=== PATIENT | male | born 1935 | race Caucasian/White ===

== ENCOUNTER 2023-03-10 12:28 | Emergency (ER) | payer OTHER ==
[2023-03-10 14:45] LABS: Hematocrit 30.2 % (39.6-49.0); Lymphocytes % 12.6 % (15.3-44.8); MPV 8.2 fL (7.6-11.3); Platelets 173 thou/uL (152-406); RBC Red Blood Cell Count 3.59 M/uL (4.33-5.43)
[2023-03-10 14:51] LABS: Protime INR 1.77
[2023-03-10 15:02] LABS: Albumin 2.2 g/dL (3.4-5.0); Bilirubin Direct 0.2 mg/dL (0-0.2); Bilirubin Indirect, Calculated 0.3 mg/dL (0.2-0.8); Bilirubin Total 0.5 mg/dL (0.2-1.0); Magnesium 2.1 mg/dL (1.6-2.4); Potassium 3.8 mEq/L (3.5-5.1); Protein, Total 6.4 g/dL (6.4-8.2); Troponin High Sensitivity 11.2 pg/mL (<58.9)
--- NOTE | 2023-03-10 15:05 | RAD REPORT ---
EXAM DESCRIPTION: Emilee Single View03/10/2023 2:40 pm CLINICAL HISTORY: Cough COMPARISON: none FINDINGS: Mild bilateral pulmonary opacities. Probable small pleural effusions Heart is mildly enlarged. Postsurgical changes involve the chest. Pacemaker leads in place IMPRESSION: These findings probably indicate mild CHF
[2023-03-10 15:30] LABS: SARS-CoV-2 Antigen Rapid Res Negative (Negative)
[2023-03-10] MEDS ORDERED: FUROSEMIDE 20 MG/ 2ML VIAL ONE (15:53)
--- NOTE | 2023-03-10 16:14 | EDPHYS ---
Physician Documentation [facility] Name: Viri Christian Age: 87 yrs Sex: Male : 1935 Arrival Date: 03/10/2023 Time: 12:28 Bed 18 Private MD: ED Physician Nico Lutz HPI: 03/10 13:15 This 87 yrs old Male presents to ER via Wheelchair with complaints of Breathing cp3 Difficulty. 13:15 The patient has shortness of breath at rest. Onset: The symptoms/episode began/occurred cp3 1 week(s) ago. Duration: The symptoms are continuous. The patient's shortness of breath is aggravated by coughing. Associated signs and symptoms: Pertinent positives: non-productive cough. Severity of symptoms: At their worst the symptoms were moderate in the emergency department the symptoms are unchanged. The patient has experienced a previous episode, but today's symptoms are not as bad as this previous episode. Historical: - Allergies: 12:38 No Known Allergies; cm10 - Home Meds: 12:38 Eliquis 5 mg oral tablet 2 times per day [Active]; levothyroxine 75 mcg tablet once cm10 [Active]; atorvastatin 40 mg oral tablet once [Active]; carvedilol 12.5 mg oral tablet 2 times per day [Active]; lisinopril 2.5 mg Oral tablet once [Active]; - PMHx: 12:38 Cancer- Throat; Hypertensive disorder; Hypothyroidism; Hypercholesterolemia; cm10 - Immunization history:: Adult Immunizations unknown. - Social history:: Smoking status: Patient denies any tobacco usage or history of. ROS: 13:15 Constitutional: Negative for fever, chills, and weight loss, Eyes: Negative for injury, cp3 pain, redness, and discharge, ENT: Negative for injury, pain, and discharge, Neck: Negative for injury, pain, and swelling, Cardiovascular: Negative for chest pain, palpitations, and edema, Abdomen/GI: Negative for abdominal pain, nausea, vomiting, diarrhea, and constipation, Back: Negative for injury and pain, : Negative for injury, bleeding, discharge, and swelling, MS/Extremity: Negative for injury and deformity, Skin: Negative for injury, rash, and discoloration, Neuro: Negative for headache, weakness, numbness, tingling, and seizure, Psych: Negative for depression, anxiety, suicide ideation, homicidal ideation, and hallucinations, Allergy/Immunology: Negative for hives, rash, and allergies, Endocrine: Negative for neck swelling, polydipsia, polyuria, polyphagia, and marked weight changes, Hematologic/Lymphatic: Negative for swollen nodes, abnormal bleeding, and unusual bruising, 13:15 Respiratory: Positive for cough, shortness of breath, at rest. Exam: 13:15 Constitutional: This is a well developed, well nourished patient who is awake, alert, cp3 and in no acute distress. Head/Face: Normocephalic, atraumatic. Eyes: Pupils equal round and reactive to light, extra-ocular motions intact. Lids and lashes normal. Conjunctiva and sclera are non-icteric and not injected. Cornea within normal limits. Periorbital areas with no swelling, redness, or edema. ENT: Nares patent. No nasal discharge, no septal abnormalities noted. Tympanic membranes are normal and external auditory canals are clear. Oropharynx with no redness, swelling, or masses, exudates, or evidence of obstruction, uvula midline. Mucous membranes moist. Neck: Trachea midline, no thyromegaly or masses palpated, and no cervical lymphadenopathy. Supple, full range of motion without nuchal rigidity, or vertebral point tenderness. No Meningismus. Chest/axilla: Normal chest wall appearance and motion. Nontender with no deformity. No lesions are appreciated. Cardiovascular: Regular rate and rhythm with a normal S1 and S2. No gallops, murmurs, or rubs. Normal PMI, no JVD. No pulse deficits. Abdomen/GI: Soft, non-tender, with normal bowel sounds. No distension or tympany. No guarding or rebound. No evidence of tenderness throughout. Skin: Warm, dry with normal turgor. Normal color with no rashes, no lesions, and no evidence of cellulitis. MS/ Extremity: Pulses equal, no cyanosis. Neurovascular intact. Full, normal range of motion. Neuro: Awake and alert, GCS 15, oriented to person, place, time, and situation. Cranial nerves II-XII grossly intact. Motor strength 5/5 in all extremities. Sensory grossly intact. Cerebellar exam normal. Normal gait. Psych: Awake, alert, with orientation to person, place and time. Behavior, mood, and affect are within normal limits. 13:15 Respiratory: Breath sounds: diminished bilaterally, Vital Signs: 12:37 BP 105 / 60; Pulse 72; Resp 16 S; Temp 97.1(TE); Pulse Ox 97% on R/A; Weight 65.77 kg; cm10 Height 5 ft. 7 in. ; Pain 0/10; 13:20 BP 95 / 62; Pulse 70; Resp 16; Pulse Ox 96% on R/A; eh3 14:00 BP 111 / 72; Pulse 70; Resp 14; Pulse Ox 97% on R/A; eh3 15:00 BP 104 / 76; Pulse 85; Resp 16; Pulse Ox 98% on R/A; eh3 16:00 BP 103 / 74; Pulse 70; Resp 20; Pulse Ox 97% on R/A; eh3 12:37 Body Mass Index 22.71 (65.77 kg, 170.18 cm) cm10 12:37 Pain Scale: Adult cm10 Procedures: 16:09 ekg interpreted by me, rate 70, no evidence of acute mi. cp3 MDM: 12:36 Patient medically screened. cp3 16:09 Differential diagnosis: Bronchitis CHF exacerbation, Chronic Obstructive Pulmonary cp3 Disease Myocardial Infarction pneumonia, Pneumothorax pulmonary edema, reactive airway disease. Antibiotic administration: The patient is discharged and will get outpatient antibiotics. Data reviewed: vital signs, nurses notes, radiologic studies, plain films, cxr interpreted by me- pulmonary edema. Consideration of Admission/Observation Escalation of care including admission/observation considered. patient declined observation. I considered the following discharge prescriptions or medication management in the emergency department Medications were administered in the Emergency Department. See MAR. Independent interpretation of the following test(s) in the Emergency Department clinical research monitor: rate is 70 beats/min, Rhythm is normal sinus rhythm. 16:09 Response to treatment: the patient's symptoms have markedly improved after treatment. 3 03/10 14:13 Order name: BMP; Complete Time: 15:19 3 03/10 15:42 Interpretation: Within normal limits: NA 142; K 3.8; CL 109; CO2 31; ANION GAP 5.8; cp3 GLUC 112; BUN 17; CRE 0.96; GFR 77; CA 8.6. 03/10 14:13 Order name: Blood Culture Adult (2) 3 03/10 14:13 Order name: CBC with Diff; Complete Time: 14:54 3 03/10 14:54 Interpretation: WBC 8.00; RBC 3.59; HGB 10.0; HCT 30.2; MCV 84.0; MCH 27.7; MCHC 33.0; cp3 PLT 173; RDW 16.1; MPV 8.2; GILBERTO% 77.6; LYM% 12.6; MN% 7.9; EOSINOPHIL % 1.4; BASO% 0.5; NEUT A 6.2; LYMA 1.0; MNA 0.6; EOSA 0.1; BASOA 0.0. 03/10 14:13 Order name: CPK; Complete Time: 15:19 cp3 03/10 14:13 Order name: Hepatic Function; Complete Time: 15:19 cp3 03/10 14:13 Order name: Lipase; Complete Time: 15:19 cp3 03/10 15:42 Interpretation: LIP 41. cp3 03/10 14:13 Order name: Magnesium; Complete Time: 15:19 cp3 03/10 14:13 Order name: NT PRO-BNP; Complete Time: 15:19 cp3 03/10 14:13 Order name: PT-INR; Complete Time: 14:54 cp3 03/10 14:13 Order name: Ptt, Activated; Complete Time: 14:54 cp3 03/10 14:13 Order name: Troponin HS; Complete Time: 15:19 cp3 03/10 15:42 Interpretation: Troponin HS 11.2. cp3 03/10 15:09 Order name: Flu; Complete Time: 16:39 eb 03/10 15:09 Order name: RSV; Complete Time: 16:39 eb 03/10 15:12 Order name: SARS-COV-2 Antigen Rapid; Complete Time: 15:42 EDMS 03/10 15:42 Interpretation: SARS RESULT Negative. cp3 03/10 14:13 Order name: XRAY CXR (1 view); Complete Time: 15:19 cp3 03/10 15:43 Interpretation: Per Radiologist's finding(s): [facility] [address] [address] RADIOLOGY SERVICES REPORT Name: VIRI CHRISTIAN MERRILL Acct Number: [id number] :1935 Age:87 Sex:M Ord Phys: Nico Lutz MD Unit Number: [id number] [facility] Dr: NONE Status: REG ER ER Exam Date: 03/10/23 EXAM DESCRIPTION: Emilee Single View03/10/2023 2:40 pm CLINICAL HISTORY: Cough COMPARISON: none FINDINGS: Mild bilateral pulmonary opacities. Probable small pleural effusions Heart is mildly enlarged. Postsurgical changes involve the chest. Pacemaker leads in place IMPRESSION: These findings probably indicate mild CHF Signed By: Herbert Panda MD Signed AT: 03/10/23 1505 , Pulmonary edema on reviewed images, Pulmonary edema on reviewed images, Pulmonary edema on reviewed images, Pulmonary edema on reviewed images, Pulmonary edema on reviewed images. 03/10 14:13 Order name: EKG; Complete Time: 14:14 cp3 03/10 14:13 Order name: Cardiac monitoring; Complete Time: 14:38 cp3 03/10 14:13 Order name: EKG - Nurse/Tech; Complete Time: 14:59 cp3 03/10 14:13 Order name: IV Saline Lock; Complete Time: 14:38 cp3 03/10 14:13 Order name: Labs collected and sent; Complete Time: 14:38 cp3 03/10 14:13 Order name: O2 Per Protocol; Complete Time: 14:14 cp3 03/10 14:13 Order name: O2 Sat Monitoring; Complete Time: 14:14 cp3 Administered Medications: 15:50 Drug: Furosemide IVP 20 mg IVP once; give over 2 minutes Route: IVP; Site: right upper eh3 arm; 16:22 Follow up: Response: No adverse reaction eh3 Disposition Summary: 03/10/23 16:13 Discharge Ordered Notes: Location: Home cp3 Condition: Stable cp3 Problem: new cp3 Diagnosis - cough cp3 - shortness of breath cp3 - pulmonary edema cp3 - acute on chronic congestive heart failure- unspecified if diasolic or systolic cp3 dysfunction - bronchitis cp3 Followup: cp3 - With: Akira Sommer MD - When: - Reason: Recheck today's complaints Discharge Instructions: - Discharge Summary Sheet cp3 - Acute Bronchitis, Adult cp3 - Pulmonary Edema, [id number] cp3 Forms: - Medication Reconciliation Form cp3 - Thank You Letter cp3 - Antibiotic Education cp3 - Prescription Opioid Use cp3 - Patient Portal Instructions cp3 - Leadership Thank You Letter cp3 Prescriptions: - Cephalexin 250 mg Oral capsule - take 1 capsule ORAL route every 8 hours for 10 days; 21 capsule; Refills: 0, cp3 Product Selection Permitted - Lasix 20 mg Oral Tablet - take 1 tablet ORAL route once daily; 20 tablet; Refills: 0, Product Selection cp3 Permitted - Tessalon Perles 100 mg Oral Capsule - take 1 capsule ORAL route every 8 hours As needed; 15 capsule; Refills: 0, cp3 Product Selection Permitted Signatures: Dispatcher [employer] EDNico Bahena MD MD cp3 Lulu Fraser RN RN eh3 Molly Vee RN RN cm10 Corrections: (The following items were deleted from the chart) 15:12 14:14 COVID-19/FLU A+B/RSV+MOL.LAB.BRZ ordered. EDMS EDMS 15:42 15:42 NA 142; K 3.8; CL 109; CO2 31; ANION GAP 5.8; GLUC 112; BUN 17; CRE 0.96; GFR 77; cp3 CA 8.6. cp3
--- NOTE | 2023-03-10 16:14 | ER ---
Nurse's Notes [facility] Name: Michael Christian Age: 87 yrs Sex: Male : 1935 Arrival Date: 03/10/2023 Time: 12:28 Bed 18 Private MD: Diagnosis: cough;shortness of breath;pulmonary edema;acute on chronic congestive heart failure- unspecified if diasolic or systolic dysfunction;bronchitis Presentation: 03/10 12:37 Chief complaint: Patient states: cough and shortness of breath X3 weeks. PT states that cm10 he feels like he has fluid in his lungs. Coronavirus screen: Vaccine status: Patient reports receiving the 2nd dose of the covid vaccine. Client denies travel out of the [place] in the last 14 days. Ebola Screen: Patient denies travel to an Ebola-affected area in the 21 days before illness onset. No symptoms or risks identified at this time. Initial Sepsis Screen: Does the patient meet any 2 criteria? No. Patient's initial sepsis screen is negative. Does the patient have a suspected source of infection? No. Patient's initial sepsis screen is negative. Risk Assessment: Do you want to hurt yourself or someone else? Patient reports no desire to harm self or others. Onset of symptoms was March 10, 2023. 12:37 Method Of Arrival: Wheelchair cm10 12:37 Acuity: NOÉ 3 cm10 Triage Assessment: 13:20 General: Appears in no apparent distress. uncomfortable, Behavior is calm, cooperative, eh3 appropriate for age. Respiratory: Reports labored breathing Onset: The symptoms/episode began/occurred 3-4 days ago. Respiratory: the patient has mild shortness of breath. Historical: - Allergies: 12:38 No Known Allergies; cm10 - Home Meds: 12:38 Eliquis 5 mg oral tablet 2 times per day [Active]; levothyroxine 75 mcg tablet once cm10 [Active]; atorvastatin 40 mg oral tablet once [Active]; carvedilol 12.5 mg oral tablet 2 times per day [Active]; lisinopril 2.5 mg Oral tablet once [Active]; - PMHx: 12:38 Cancer- Throat; Hypertensive disorder; Hypothyroidism; Hypercholesterolemia; cm10 - Immunization history:: Adult Immunizations unknown. - Social history:: Smoking status: Patient denies any tobacco usage or history of. Screenin:20 [facility] ED Fall Risk Assessment (Adult) Score/Fall Risk Level 0 - 2 = Low Risk. Abuse eh3 screen: Denies threats or abuse. Denies injuries from another. Nutritional screening: No deficits noted. Tuberculosis screening: No symptoms or risk factors identified. Assessment: 13:20 General: Appears in no apparent distress. uncomfortable, Behavior is calm, cooperative, eh3 appropriate for age. Pain: Denies pain. Neuro: Level of Consciousness is awake, alert, obeys commands, Oriented to person, place, time, situation. Cardiovascular: Capillary refill < 3 seconds Patient's skin is warm and dry. Respiratory: Airway is patent Respiratory effort is even, unlabored, Respiratory pattern is regular, symmetrical, 13:30 Cardiovascular: Rhythm is ventricular pacer. eh3 14:00 Reassessment: Patient appears in no apparent distress at this time. Patient and/or 3 family updated on plan of care and expected duration. Pain level reassessed. Patient is alert, oriented x 3, equal unlabored respirations, skin warm/dry/pink. 15:00 Reassessment: Patient appears in no apparent distress at this time. Patient and/or 3 family updated on plan of care and expected duration. Pain level reassessed. Patient is alert, oriented x 3, equal unlabored respirations, skin warm/dry/pink. 16:00 Reassessment: Patient appears in no apparent distress at this time. Patient and/or 3 family updated on plan of care and expected duration. Pain level reassessed. Patient is alert, oriented x 3, equal unlabored respirations, skin warm/dry/pink. Vital Signs: 12:37 BP 105 / 60; Pulse 72; Resp 16 S; Temp 97.1(TE); Pulse Ox 97% on R/A; Weight 65.77 kg; cm10 Height 5 ft. 7 in. ; Pain 0/10; 13:20 BP 95 / 62; Pulse 70; Resp 16; Pulse Ox 96% on R/A; eh3 14:00 BP 111 / 72; Pulse 70; Resp 14; Pulse Ox 97% on R/A; eh3 15:00 BP 104 / 76; Pulse 85; Resp 16; Pulse Ox 98% on R/A; eh3 16:00 BP 103 / 74; Pulse 70; Resp 20; Pulse Ox 97% on R/A; eh3 12:37 Body Mass Index 22.71 (65.77 kg, 170.18 cm) cm10 12:37 Pain Scale: Adult cm10 ED Course: 12:33 Patient arrived in ED. mr 12:36 Nico Lutz MD is Attending Physician. cp3 12:38 Triage completed. cm10 12:41 Arm band placed on Patient placed in an exam room, on a stretcher. cm10 13:20 Provided Education on: use of call cooney. Client placed on continuous cardiac and pulse eh3 oximetry monitoring. NIBP monitoring applied. 13:20 Patient has correct armband on for positive identification. Bed in low position. Call eh3 light in reach. Side rails up X2. 13:53 Lulu Fraser, RN is Primary Nurse. eh3 14:41 XRAY CXR (1 view) In Process Unspecified. EDMS 15:21 SARS-COV-2 Antigen Rapid Sent. eh3 16:12 Akira Sommer MD is Referral Physician. cp3 16:20 No provider procedures requiring assistance completed. IV discontinued, intact, eh3 bleeding controlled, No redness/swelling at site. Pressure dressing applied. Administered Medications: 15:50 Drug: Furosemide IVP 20 mg IVP once; give over 2 minutes Route: IVP; Site: right upper eh3 arm; 16:22 Follow up: Response: No adverse reaction eh3 Medication: 16:21 VIS not applicable for this client. eh3 Outcome: 16:13 Discharge ordered by MD. cp3 16:52 Discharged to home ambulatory, with significant other, eh3 16:52 Condition: stable 16:52 Discharge instructions given to patient, Instructed on discharge instructions, follow up and referral plans. medication usage, Demonstrated understanding of instructions, follow-up care, medications, Prescriptions given X 3, 16:52 Patient left the ED. eh3 Signatures: Dispatcher [employer] EDMS Nico Lutz MD MD cp3 Ila Yang, Reg Reg mr Lulu Fraser, RN RN 3 Molly Vee, SLAVA RN cm10 Corrections: (The following items were deleted from the chart) 15:12 14:59 COVID-19/FLU A+B/RSV+MOL.LAB.BRZ drawn and sent. eh3 EDMS 16:22 16:21 Patient has correct armband on for positive identification. Bed in low position. eh3 Call light in reach. Side rails up X2. eh3
[2023-03-10 16:57] VITALS: TEMP 97.1
[2023-03-10 17:05] VITALS: BP 103/74; O2SAT 97
== END 2023-03-10 16:52 | disposition home or self-care (01) ==
LOC: ER 12:28
DX: J40 Bronchitis, not specified as acute or chronic (principal); I50.43 Acute on chronic combined systolic (congestive) and diastolic (congestive) heart failure; R06.02 Shortness of breath; I10 Essential (primary) hypertension; E03.9 Hypothyroidism, unspecified; Z79.01 Long term (current) use of anticoagulants; Z11.52 Encounter for screening for COVID-19
CPT/HCPCS: 93005; 87040 ×2; 85025; 80048; 36415; 83735; 82550; 85610; 80076; 85730; 84484; 83690; 83880; 87807; 87804 ×2; 71045; 96374; 99284; 87811; J1940

== ENCOUNTER 2023-08-31 01:20 | Inpatient (IN) | payer OTHER ==
[2023-08-31] MEDS ORDERED: ALBUTEROL 2.5 MG/3 ML NEB SOL ONE ×2 (02:08→13:20)
[2023-08-31] MEDS ORDERED: IPRATROPIUM BROM 0.5MG/2.5ML ONE (02:08)
[2023-08-31] MEDS ORDERED: FUROSEMIDE 40 MG/4 ML VIAL ONE (02:08)
[2023-08-31 02:11] LABS: Absolute Eosinophils 0.1 K/uL (0-0.5); Absolute Lymphocytes (CBC) 2.1 K/uL (0.7-4.9); Absolute Monocytes 0.9 K/uL (0.1-1.3); Absolute Neutrophil 6.8 K/uL (1.8-8.0); Basophils % 0.4 % (0-1.3); Eosinophils % 0.6 % (0-4.4); Hematocrit 33.1 % (39.6-49.0); Hemoglobin 10.6 g/dL (13.6-17.9); Lymphocytes % 21.1 % (15.3-44.8); MCH 26.1 pg (27.0-35.0); MCHC 32.1 g/dL (32.0-36.0); MCV 81.4 fL (80-100); MPV 8.4 fL (7.6-11.3); Monocytes % 9.3 % (3.3-12.3); Neutrophils % 68.6 % (41.7-73.7); Nucleated Red Blood Cells % 0.1 % (0-0); PT Prothrombin Time 16.4 SECONDS (9.5-12.5); Platelets 148 thou/uL (152-406); Protime INR 1.51; RBC Red Blood Cell Count 4.06 M/uL (4.33-5.43)
[2023-08-31 02:23] LABS: Albumin 2.5 g/dL (3.4-5.0); Albumin/Globulin Ratio 0.5 (1.1-1.8); Anion Gap 10.6 mEq/L (5.0-15.0); Bilirubin Direct 0.3 mg/dL (0-0.2); Bilirubin Indirect, Calculated 0.2 mg/dL (0.2-0.8); Bilirubin Total 0.5 mg/dL (0.2-1.0); Globulin 4.6 g/dL (2.3-3.5); Potassium 3.6 mEq/L (3.5-5.1); Protein, Total 7.1 g/dL (6.4-8.2); Troponin High Sensitivity 10.9 pg/mL (<58.9)
[2023-08-31 02:56] LABS: SARS-CoV-2 Antigen CONTROL BLUE LINE VIS/BG OK; SARS-CoV-2 Antigen Rapid Res Negative (Negative)
[2023-08-31] MEDS ORDERED: NA CHLORIDE 0.9% 1,000 ML ONE (03:18)
[2023-08-31 04:03] LABS: Specific Gravity 1.009 (1.005-1.030); Sqamous Epithelial <5 /HPF (None Seen); Urine Bacteria <20 /HPF (<20); Urine Bilirubin NEGATIVE (Negative); Urine Blood Negative (Negative); Urine Clarity Turbid (Clear); Urine Color Colorless (Yellow); Urine Culture Reflex Order NOT NEEDED; Urine Glucose NEGATIVE (Negative); Urine Ketones NEGATIVE (Negative); Urine Micro Reflex YN NO BILL MICROSCOPIC; Urine Mucus Slight /HPF (None Seen); Urine Nitrite NEGATIVE (Negative); Urine Protein NEGATIVE (Negative); Urine RBC None Seen /HPF (None Seen); Urine Urobilinogen Normal (Normal); Urine WBC None Seen /HPF (<5)
--- NOTE | 2023-08-31 04:11 | EDPHYS ---
Physician Documentation [facility] Name: Michael Christian Age: 87 yrs Sex: Male : 1935 Arrival Date: 08/31/2023 Time: 01:20 Bed 5 Private MD: ED Physician Stu Schneider HPI: 08/30 01:45 This 87 yrs old Male presents to ER via Wheelchair with complaints of Shortness Of cp Breath. 01:45 The patient has shortness of breath at rest. cp Historical: - Allergies: 01:37 No Known Allergies; vc1 - Home Meds: 01:37 atorvastatin 40 mg Oral tablet once [Active]; carvedilol 12.5 mg Oral tablet 2 times vc1 per day [Active]; Eliquis 5 mg Oral tablet 2 times per day [Active]; levothyroxine 75 mcg tablet once [Active]; lisinopril 2.5 mg Oral tablet once [Active]; - PMHx: 01:37 Cancer- Throat; Hypercholesterolemia; Hypertensive disorder; Hypothyroidism; vc1 - Immunization history:: Client reports receiving the 2nd dose of the Covid vaccine, Flu vaccine is up to date. - Infectious Disease History:: Denies. - Social history:: Smoking status: Patient denies any tobacco usage or history of. Vital Signs: 01:41 BP 164 / 100; Pulse 70; Resp 40; Temp 97; Pulse Ox 86% on R/A; Weight 60.5 kg (M); vc1 Height 5 ft. 11 in. ; Pain 0/10; 01:42 Pulse Ox 94% on 3 lpm NC; vc1 03:04 BP 157 / 80; Pulse 70; Resp 20; Pulse Ox 92% on 2 lpm NC; tm6 03:16 BP 86 / 56; Pulse 70; Resp 27; Pulse Ox 94% on 2 lpm NC; tm6 01:41 Body Mass Index 18.60 (60.50 kg, 180.34 cm) vc1 01:41 Pain Scale: Adult vc1 MDM: 01:35 Patient medically screened. ramona 08/30 01:39 Order name: Basic Metabolic Panel; Complete Time: 02:26 cp 08/30 02:27 Interpretation: Normal except: NA 135; GLUC 159; GFR 75. cp 08/30 01:39 Order name: CBC with Diff; Complete Time: 02:26 cp 08/30 02:27 Interpretation: Normal except: RBC 4.06; HGB 10.6; HCT 33.1; MCH 26.1; PLT 148; RDW cp 19.0. 08/30 01:39 Order name: LFT's; Complete Time: 02:26 cp 08/30 04:15 Interpretation: Normal except: AST 41; BILID 0.3; ALB 2.5; GLOB 4.6; A/G 0.5. cp 08/30 01:39 Order name: Magnesium; Complete Time: 02:26 cp 08/30 01:39 Order name: NT PRO-BNP; Complete Time: 02:26 cp 08/30 02:27 Interpretation: Abnormal: NT PRO-BNP 2676. cp 08/30 01:39 Order name: PT-INR; Complete Time: 02:26 cp 08/30 01:39 Order name: Troponin HS; Complete Time: 02:26 cp 08/30 01:39 Order name: Influenza Screen (a \T\ B); Complete Time: 05:41 cp 08/30 01:39 Order name: Lactate w/ 2H reflex if indic.; Complete Time: 02: cp 08/30 02:27 Interpretation: Abnormal: LAC 2.7. cp 08/30 01:39 Order name: Blood Culture Adult (2) cp 08/30 01:39 Order name: SARS RAPID; Complete Time: 04:00 cp 08/30 02:28 Order name: Urinalysis W/Microscopic; Complete Time: 04:14 cp 08/30 04:14 Interpretation: Reviewed. cp 08/30 05:02 Order name: Lactate Sepsis 2 HR Follow-up; Complete Time: 05:41 EDMS 08/30 06:24 Order name: Thyroid Stimulating Hormone EDMS 08/30 06:24 Order name: CBC with Automated Diff EDMS 08/30 06:24 Order name: CBC with Automated Diff EDMS 08/30 06:24 Order name: CBC with Automated Diff EDMS 08/30 06:24 Order name: CBC with Automated Diff EDMS 08/30 06:24 Order name: Comprehensive Metabolic Panel EDMS 08/30 06:24 Order name: Comprehensive Metabolic Panel EDMS 08/30 06:24 Order name: Comprehensive Metabolic Panel EDMS 08/30 06:24 Order name: Comprehensive Metabolic Panel EDMS 08/30 06:24 Order name: Lipid Profile EDMS 08/30 06:24 Order name: Lipid Profile EDMS 08/30 06:24 Order name: Magnesium EDMS 08/30 06:24 Order name: Magnesium EDMS 08/30 06:24 Order name: Magnesium EDMS 08/30 06:24 Order name: Magnesium EDMS 08/30 06:24 Order name: Phosphorus EDMS 08/30 06:24 Order name: Phosphorus EDMS 08/30 06:24 Order name: Phosphorus EDMS 08/30 06:24 Order name: Phosphorus EDMS 08/30 06:24 Order name: Troponin High Sensitivity EDMS 08/30 06:24 Order name: Troponin High Sensitivity EDMS 08/30 06:24 Order name: Troponin High Sensitivity EDMS 08/30 07:52 Order name: Glucose, Ancillary Testing EDMA 08/30 12:10 Order name: Glucose, Ancillary Testing EDMA 08/30 01:39 Order name: XRAY Chest (1 view) cp 08/30 02:28 Order name: CT Chest For PE Angio cp 08/30 06:24 Order name: Echo with Doppler EDMA 08/30 01:39 Order name: EKG; Complete Time: 01:39 cp 08/30 06:24 Order name: CONS Physician Consult EDMA 08/30 01:39 Order name: Cardiac monitoring; Complete Time: 01:55 cp 08/30 01:39 Order name: EKG - Nurse/Tech; Complete Time: 02:25 cp 08/30 01:39 Order name: IV Saline Lock; Complete Time: 01:55 cp 08/30 01:39 Order name: Labs collected and sent; Complete Time: 01:55 cp 08/30 01:39 Order name: O2 Per Protocol; Complete Time: 01:55 cp 08/30 01:39 Order name: O2 Sat Monitoring; Complete Time: 01:56 cp Administered Medications: 02:14 Drug: DuoNeb Nebulize (2.5 mg - 0.5 mg) 3 ml Nebulizer once Route: Nebulizer; tm6 04:25 Follow up: Response: No adverse reaction bm8 06:04 Follow up: Response: No adverse reaction tm6 02:15 Drug: Furosemide IVP 40 mg IVP once; give over 2 minutes Route: IVP; Site: left wrist; tm6 04:25 Follow up: Response: No adverse reaction bm8 06:04 Follow up: Response: No adverse reaction tm6 03:23 Drug: NS 0.9% IV 500 ml IV at bolus once Route: IV; Rate: bolus; Site: right tm6 antecubital; 04:25 Follow up: Response: No adverse reaction; IV Status: Completed infusion; IV Intake: bm8 500ml 06:04 Follow up: IV Status: Completed infusion; IV Intake: 250ml tm6 04:24 Drug: levofloxacin IVPB 500 mg 100 ml IVPB once over 60 mins Volume: 100 ml; Route: bm8 IVPB; Infused Over: 60 mins; Site: right antecubital; 06:04 Follow up: Response: No adverse reaction; IV Status: Completed infusion tm6 Disposition Summary: 08/31/23 04:11 Hospitalization Ordered Notes: Hospitalization Status: Inpatient Admission cp Provider: Justin Mclaughlin cp Condition: Stable cp Problem: an acute exacerbation cp Symptoms: have improved cp Bed/Room Type: Standard cp Location: Telemetry/MedSurg (Inpatient)(08/31/23 16:04) em1 Room Assignment: 220(08/31/23 16:04) em1 Diagnosis - Unspecified combined systolic (congestive) and diastolic (congestive) heart failure cp - Acute pulmonary edema cp - Hypoxemia cp - Acute interstitial pneumonitis - infectious, chf ramona Forms: - Medication Reconciliation Form cp - SBAR form cp - Leadership Thank You Letter cp Signatures: Dispatcher [employer] Stu Spivey MD MD cha Waters, Shelly, FNP-C [employer] F[employer]NACE OPERATOR-[employer]ang Jovel em1 Stu Paz PA PA cp Doreen Castro RN RN vc1 Neetu Costa rv1 Alfredo Stein RN RN tm6 Jackson Patel, RN RN bm8 Corrections: (The following items were deleted from the chart) 01:40 01:39 BASIC METABOLIC PANEL+C.LAB.BRZ ordered. EDMS EDMS 01:40 01:39 CBC+H.LAB.BRZ ordered. EDMS EDMS 01:40 01:39 HEPATIC FUNCTION+C.LAB.BRZ ordered. EDMS EDMS 01:40 01:39 MAGNESIUM+C.LAB.BRZ ordered. EDMS EDMS 01:40 01:39 PROBNP+C.LAB.BRZ ordered. EDMS EDMS 01:40 01:39 PROTIME (+INR)+COAG.LAB.BRZ ordered. EDMS EDMS 01:40 01:39 Troponin High Sensitivity+C.LAB.BRZ ordered. EDMA EDMS 01:40 01:39 Influenza Screen (A \T\ B)+BA.LAB.BRZ ordered. EDMS EDMS 01:40 01:39 LACTATE+C.LAB.BRZ ordered. EDMA EDMS 01:40 01:39 BLOOD CULTURE*+BA.LAB.BRZ ordered. EDMS EDMS :40 01:39 SARS-COV-2 Antigen Rapid+I.LAB.BRZ ordered. EDMA EDMS 05: 04:11 Telemetry/MedSurg (Inpatient) cp rv1 05: 04:11 cp rv1 06:09 06:07 Constitutional: Negative for fever, chills, and weight loss, Eyes: Negative for ramona injury, pain, redness, and discharge, ENT: Negative for injury, pain, and discharge, Neck: Negative for injury, pain, and swelling, Cardiovascular: Negative for chest pain, palpitations, and edema, Respiratory: Negative for shortness of breath, cough, wheezing, and pleuritic chest pain, : Negative for injury, bleeding, discharge, and swelling, MS/Extremity: Negative for injury and deformity, Skin: Negative for injury, rash, and discoloration, Neuro: Negative for headache, weakness, numbness, tingling, and seizure, Psych: Negative for depression, anxiety, suicide ideation, homicidal ideation, and hallucinations, Allergy/Immunology: Negative for hives, rash, and allergies, Endocrine: Negative for neck swelling, polydipsia, polyuria, polyphagia, and marked weight changes, Hematologic/Lymphatic: Negative for swollen nodes, abnormal bleeding, and unusual bruising, ramona 06:09 06:07 Abdomen/GI: Positive for abdominal pain, of the suprapubic area, right lower ramona quadrant and left lower quadrant, ramona 06:09 06:07 Back: Positive for pain at rest, pain with movement, flank pain, on the right, jonatan 06:42 05:42 Martin ordered. ramona tm6 16:04 05:27 [facility] ER HOLD rv1 em1 16:04 05:27 ERHOLD- rv1 em1
--- NOTE | 2023-08-31 04:11 | ER ---
Nurse's Notes [facility] Name: Michael Christian Age: 87 yrs Sex: Male : 1935 Arrival Date: 08/31/2023 Time: 01:20 Bed 5 Private MD: Diagnosis: Unspecified combined systolic (congestive) and diastolic (congestive) heart failure;Acute pulmonary edema;Hypoxemia;Acute interstitial pneumonitis-infectious, chf Presentation: 08/30 01:34 Chief complaint: Patient states: weak and short of breath. Coronavirus screen: Client vc1 denies travel out of the [place] in the last 14 days. At this time, the client does not indicate any symptoms associated with coronavirus-19. Ebola Screen: Patient negative for fever greater than or equal to 101.5 degrees Fahrenheit, and additional compatible Ebola Virus Disease symptoms Patient denies exposure to infectious person. Patient denies travel to an Ebola-affected area in the 21 days before illness onset. No symptoms or risks identified at this time. 01:34 Method Of Arrival: Wheelchair vc1 01:41 Initial Sepsis Screen: Does the patient meet any 2 criteria? No. Patient's initial vc1 sepsis screen is negative. Does the patient have a suspected source of infection? No. Patient's initial sepsis screen is negative. Risk Assessment: Do you want to hurt yourself or someone else? Patient reports no desire to harm self or others. Onset of symptoms was August 31, 2023 at 01:42. 01:41 Acuity: NOÉ 2 vc1 Triage Assessment: 01:39 General: Appears distressed, uncomfortable, Behavior is calm, cooperative, appropriate vc1 for age. Pain: Denies pain. EENT: No deficits noted. No signs and/or symptoms were reported regarding the EENT system. Neuro: Level of Consciousness is awake, alert, obeys commands, Oriented to person, place, time, situation, Appropriate for age. Cardiovascular: No deficits noted. Cardiovascular: Heart tones S1 S2 muffled. Cardiovascular: Patient's skin is warm and dry. Edema to right lower extremity. Respiratory: Reports shortness of breath at rest Airway is patent Respiratory effort is even, labored, Respiratory pattern is symmetrical, tachypnea Breath sounds with crackles bilaterally. the patient has moderate shortness of breath. GI: No deficits noted. No signs and/or symptoms were reported involving the gastrointestinal system. : No deficits noted. No signs and/or symptoms were reported regarding the genitourinary system. Historical: - Allergies: 01:37 No Known Allergies; vc1 - Home Meds: 01:37 atorvastatin 40 mg Oral tablet once [Active]; carvedilol 12.5 mg Oral tablet 2 times vc1 per day [Active]; Eliquis 5 mg Oral tablet 2 times per day [Active]; levothyroxine 75 mcg tablet once [Active]; lisinopril 2.5 mg Oral tablet once [Active]; - PMHx: 01:37 Cancer- Throat; Hypercholesterolemia; Hypertensive disorder; Hypothyroidism; vc1 - Immunization history:: Client reports receiving the 2nd dose of the Covid vaccine, Flu vaccine is up to date. - Infectious Disease History:: Denies. - Social history:: Smoking status: Patient denies any tobacco usage or history of. Screenin:43 [facility] ED Fall Risk Assessment (Adult) History of falling in the last 3 months, vc1 including since admission No falls in past 3 months (0 pts) Confusion or Disorientation No (0 pts) Intoxicated or Sedated No (0 pts) Impaired Gait No (0 pts) Mobility Assist Device Used No (0 pt) Altered Elimination No (0 pt) Score/Fall Risk Level 0 - 2 = Low Risk Oriented to surroundings, Maintained a safe environment, Educated pt \T\ family on fall prevention, incl call for assistance when getting out of bed. Abuse screen: Denies threats or abuse. Nutritional screening: No deficits noted. Tuberculosis screening: No symptoms or risk factors identified. Assessment: 02:15 General: Appears uncomfortable, Behavior is calm, cooperative. Pain: Denies pain. tm6 Neuro: Level of Consciousness is awake, alert, obeys commands, Oriented to person, place, time, situation. Cardiovascular: Heart tones S1 S2 Patient's skin is warm and dry. Edema is 2+ to left ankle, left foot, right ankle and right foot. Respiratory: Reports shortness of breath at rest Airway is patent Respiratory effort is labored, Respiratory pattern is tachypnea Breath sounds are coarse bilaterally. GI: No signs and/or symptoms were reported involving the gastrointestinal system. Abdomen is flat, non-distended. : No signs and/or symptoms were reported regarding the genitourinary system. EENT: No signs and/or symptoms were reported regarding the EENT system. Derm: No signs and/or symptoms reported regarding the dermatologic system. Musculoskeletal: No signs and/or symptoms reported regarding the musculoskeletal system. 03:16 Reassessment: No changes from previously documented assessment. tm6 05:22 General: Waiting on CT results, pm Dr. Mclaughlin deferred to am providers.. vc1 Vital Signs: 01:41 BP 164 / 100; Pulse 70; Resp 40; Temp 97; Pulse Ox 86% on R/A; Weight 60.5 kg (M); vc1 Height 5 ft. 11 in. ; Pain 0/10; 01:42 Pulse Ox 94% on 3 lpm NC; vc1 03:04 BP 157 / 80; Pulse 70; Resp 20; Pulse Ox 92% on 2 lpm NC; tm6 03:16 BP 86 / 56; Pulse 70; Resp 27; Pulse Ox 94% on 2 lpm NC; tm6 01:41 Body Mass Index 18.60 (60.50 kg, 180.34 cm) vc1 01:41 Pain Scale: Adult vc1 ED Course: 01:34 Patient arrived in ED. vc1 01:34 Stu Schneider MD is Attending Physician. ramona 01:36 Alfredo Stein, SLAVA is Primary Nurse. tm6 01:37 Stu Paz PA is PHCP. cp 01:38 Arm band placed on right wrist. vc1 01:42 Triage completed. vc1 01:43 Patient has correct armband on for positive identification. Placed in gown. Bed in low vc1 position. Call light in reach. cafeteria monitor on. Pulse ox on. NIBP on. 01:43 Oxygen administration via nasal cannula \T\ 3L/min Response to oxygen therapy: symptoms vc1 improved. 01:55 Lactate w/ 2H reflex if indic. Sent. tm6 01:56 Basic Metabolic Panel Sent. tm6 01:56 CBC with Diff Sent. tm6 01:56 LFT's Sent. tm6 01:56 Magnesium Sent. tm6 01:56 NT PRO-BNP Sent. tm6 01:56 PT-INR Sent. tm6 01:56 Troponin HS Sent. tm6 02:10 XRAY Chest (1 view) In Process Unspecified. EDMS 02:15 Provided Education on: plan of care. Client placed on continuous cardiac and pulse tm6 oximetry monitoring. NIBP monitoring applied. Door closed. Noise minimized. Lights dimmed. Warm blanket given. 02:15 Blood Culture Adult (2) Sent. tm6 02:15 SARS RAPID Sent. tm6 02:15 Influenza Screen (a \T\ B) Sent. tm6 02:15 Inserted saline lock: 20 gauge in right antecubital area, using aseptic technique. tm6 02:15 Inserted saline lock: 20 gauge in right wrist, using aseptic technique. tm6 04:08 Justin Mclaughlin is Hospitalizing Provider. cp 04:27 repeat lactate drawn and sent. bm8 04:28 CT Chest For PE Angio In Process Unspecified. EDMS 06:58 No provider procedures requiring assistance completed. Patient admitted, IV remains in tm6 place. Administered Medications: 02:14 Drug: DuoNeb Nebulize (2.5 mg - 0.5 mg) 3 ml Nebulizer once Route: Nebulizer; tm6 04:25 Follow up: Response: No adverse reaction bm8 06:04 Follow up: Response: No adverse reaction tm6 02:15 Drug: Furosemide IVP 40 mg IVP once; give over 2 minutes Route: IVP; Site: left wrist; tm6 04:25 Follow up: Response: No adverse reaction bm8 06:04 Follow up: Response: No adverse reaction tm6 03:23 Drug: NS 0.9% IV 500 ml IV at bolus once Route: IV; Rate: bolus; Site: right tm6 antecubital; 04:25 Follow up: Response: No adverse reaction; IV Status: Completed infusion; IV Intake: bm8 500ml 06:04 Follow up: IV Status: Completed infusion; IV Intake: 250ml tm6 04:24 Drug: levofloxacin IVPB 500 mg 100 ml IVPB once over 60 mins Volume: 100 ml; Route: bm8 IVPB; Infused Over: 60 mins; Site: right antecubital; 06:04 Follow up: Response: No adverse reaction; IV Status: Completed infusion tm6 Medication: 01:43 VIS not applicable for this client. vc1 Intake: 04:25 IV: 500ml; Total: 500ml. bm8 06:04 IV: 250ml; Total: 750ml. tm6 Output: 03:16 Urine: 400ml (Voided); Total: 400ml. tm6 05:31 Urine: 800ml (Voided); Total: 1200ml. tm6 05:57 Urine: 300ml (Voided); Total: 1500ml. tm6 06:15 Urine: 250ml (Voided); Total: 1750ml. tm6 06:42 Urine: 200ml (Voided); Total: 1950ml. tm6 Outcome: 04:11 Decision to Hospitalize by Provider. cp 06:58 Admitted to ER Hold. Please see [facility] for further documentation. tm6 06:58 Condition: stable 06:58 Instructed on the need for admit, Demonstrated understanding of instructions, 16:54 Patient left the ED. bp Signatures: Dispatcher [employer] EDMS Stu Schneider MD MD cha Page, Corey, PA PA cp Miguel Middleton, RN RN bp Doreen Castro RN RN vc1 Alfredo Stein RN RN tm6 Jackson Patel RN RN bm8 Corrections: (The following items were deleted from the chart) 03:17 03:05 Reassessment: Patient and/or family updated on plan of care and expected tm6 duration. Pain level reassessed. Patient is alert, oriented x 3, equal unlabored respirations, skin warm/dry/pink. tm6
[2023-08-31] MEDS ORDERED: Levofloxacin500mg IV 500 MG/100 ML BAG IV ONE (04:20)
--- NOTE | 2023-08-31 06:25 | P.HP ---
Certification for Inpatient Patient admitted to: Inpatient With expected LOS: >2 Midnights Patient will require the following post-hospital care: None Practitioner: I am a practitioner with admitting privileges, knowledge of patient current condition, hospital course, and medical plan of care. Services: Services provided to patient in accordance with Admission requirements found in Title 42 Section 412.3 of the Code of Federal Regulations <Saed Lernercharly Alcaraz - Last Filed: 08/31/23 06:48> Patient History Date of Service: 08/31/23 Reason for admission: CHF exacerbation, hypoxia History of Present Illness: Mr. Christian is an 87-year-old gentleman with a past medical history of throat cancer, hypertension, hyperlipidemia, CHF, valve replacement, COPD who lives in a motor home with his significant other. They traveled here from [place], [place]. He has become increasingly short of breath over the last several days. He presented to the ER around 1 AM with acute dyspnea. Respiratory rate of 40, pulse ox on room air 86% on arrival has improved to respiratory rate of 27, SpO2 94% on 2L after some breathing treatments and 40 mg of Lasix IV. Laboratory evaluation showed a white count of 9.9 with no shift H/H of 10.6/33.1, platelets 148. Chem-7 unremarkable, lactate initially 2.7 (Repeat 1.6), magnesium 2.0, troponin 10.9, BNP 2676, albumin 2.5, flu and COVID studies are negative, chest x-ray read as increased interstitial markings, CT for PE pending. - Past Medical/Surgical History Has patient received pneumonia vaccine in the past: No Diabetic: No -: htn -: hld -: valve replacement -: CHF -: COPD -: Throat Cancer - Radiation -: valve replacement Psychosocial/ Personal History: Lives in a motor home with his significant other. Lives in [place]. Daughter (Toya Lopez) in [facility]. Pt is [facility] - Family History Family History: Reviewed- Non-Contributory - Social History Smoking Status: Unknown if ever smoked Alcohol use: No CD- Drugs: No Caffeine use: Yes Place of Residence: Home <Susu Lerner - Last Filed: 08/31/23 06:48> Date of Service: 08/31/23 <Gabo Welch - Last Filed: 08/31/23 16:38> Allergies No Known Allergies Allergy (Unverified 08/31/23 06:13) Review of Systems 10-point ROS is otherwise unremarkable Respiratory: Cough, Shortness of Breath, SOB with Excertion, As per HPI <Susu Lerner - Last Filed: 08/31/23 06:48> Physical Examination - Physical Exam General: Alert, In no apparent distress, Oriented x3 HEENT: Atraumatic, Normocephalic, Other (hoarse from radiation) Neck: Supple Respiratory: Crackles/rales, Expiratory wheezes Cardiovascular: Normal pulses, Regular rate/rhythm Capillary refill: <2 Seconds Gastrointestinal: Soft and benign Musculoskeletal: No clubbing Integumentary: No rashes Neurological: Normal tone Lymphatics: No axilla or inguinal lymphadenopathy External genitalia: Deferred Rectal: Deferred - Studies Laboratory Data (last 24 hrs) 08/31/23 08/31/23 08/31/23 01:48 01:48 01:48 WBC 9.90 Hgb 10.6 L Hct 33.1 L Plt Count 148 L PT 16.4 H INR 1.51 Sodium 135 L Potassium 3.6 BUN 17 Creatinine 0.99 Glucose 159 H Magnesium 2.0 Total Bilirubin 0.5 AST 41 H ALT 22 Alkaline Phosphatase 88 Microbiology Data (last 24 hrs): 08/31/23 02:05 Nasopharnyx Influenza Type A Antigen Screen - Final 08/31/23 02:05 Nasopharnyx Influenza Type B Antigen Screen - Final <Susu Lerner - Last Filed: 08/31/23 06:48> - Studies Laboratory Data (last 24 hrs) 08/31/23 08/31/23 08/31/23 01:48 01:48 01:48 WBC 9.90 Hgb 10.6 L Hct 33.1 L Plt Count 148 L PT 16.4 H INR 1.51 Sodium 135 L Potassium 3.6 BUN 17 Creatinine 0.99 Glucose 159 H Magnesium 2.0 Total Bilirubin 0.5 AST 41 H ALT 22 Alkaline Phosphatase 88 Microbiology Data (last 24 hrs): 08/31/23 02:05 Nasopharnyx Influenza Type A Antigen Screen - Final 08/31/23 02:05 Nasopharnyx Influenza Type B Antigen Screen - Final <Gabo Welch - Last Filed: 08/31/23 16:38> Assessment and Plan - Plan CHF (new onset?) with hypoxemia Daily wt Strict I&O ECHO Lasix 40mg IV given in ED with resultant drop in BP to SBP 88. Diuresing well (1950ml output in ED since 314). Will re-evaluate need post ECHO Consult Cardiology Valve replacement Continue Eliquis 5mg po BID ECHO COPD (hx?) Nebs q 4h HTN Atorvastatin 40mg po qhs HLD Carvedilol 12.5mg po BID Lisinopril 2.5mg po daily Hypothyroidism Levothyroxine 75mcg po daily Check TSH DVT/GI prophylaxis Pt on Eliquis/Protonix - Advance Directives Does patient have a Living Will: No Does patient have a Durable POA for Healthcare: No <Susu Lerner - Last Filed: 08/31/23 06:48> - Plan Pt seen and examined. I agree with the note by the CAP COVERER. Pt is an 87yo male with past medical history of Htn, CHF, throat cancer, hyperlipidemia, valve replacement, and COPD who presents with SOB for the past few days. It progressively worsened earlier this morning and pt came to the Er for evaluation. On admission, lab studies show BNP 2676, troponin 10.9, lactate 2.7 -> 1.6, white count of 9.9 with no shift, H/H of 10.6/33.1, platelets 148, magnesium 2.0, albumin 2.5, flu and COVID studies are negative. chest x-ray shows increased interstitial markings, CT chest is negative for PE but shows tree in bud appearance and possible bronchitis. At bedside, pt is in NAD. A/P: Acute CHF exacerbation: BNP 2676. Will continue lasix, strict I/O and daily weight. Bronchitis: Will give prn duoneb and steroid. Acute resp failure with hypoxia: Due to CHF exacerbation. Will continue lasix. Hx of COPD: Continue prn duoneb and steroid. Will continue home meds for other chronic medical problems. <Gabo Welch - Last Filed: 08/31/23 16:38>
[2023-08-31] MEDS ORDERED: SODIUM CHLORIDE 0.9% 10ML INJ IV PRN (06:47)
[2023-08-31 06:51] VITALS: BMI 18.5
[2023-08-31] MEDS: INSULIN REGULAR (HUMAN) 100 UNIT/ML SQ SCH (07:30)
[2023-08-31] MEDS: IPRATROPIUM BROM 0.5MG/2.5ML NEB SCH (08:41)
[2023-08-31] MEDS: ALBUTEROL 2.5 MG/3 ML NEB SOL NEB SCH (08:41)
[2023-08-31] MEDS: APIXABAN 5 MG TABLET PO SCH (09:00)
[2023-08-31] MEDS: PANTOPRAZOLE 40 MG INJ IVP SCH (09:00)
[2023-08-31] MEDS ORDERED: APIXABAN 5 MG TABLET ONE (09:58)
[2023-08-31] MEDS ORDERED: PANTOPRAZOLE 40 MG INJ ONE (09:58)
--- NOTE | 2023-08-31 10:13 | RAD REPORT ---
EXAM DESCRIPTION: CTA THORAX - PULMONARY ARTERIES CLINICAL HISTORY: Suspected pulmonary embolus. COMPARISON: Chest x-ray 08/31/2023. TECHNIQUE: Intravenous low osmolar contrast. Coronal and sagittal reformations including 3D maximu m intensity projections. This exam was performed according to our departmental dose-optimization program, which includes autom ated exposure control, adjustment of the mA and/or kV according to patient size and/or use of iterati ve reconstruction technique. FINDINGS: Exam severely limited due to motion and beam hardening artifact. PULMONARY ARTERIAL SYSTEM: No CT evidence for pulmonary embolism, given above limitations. CARDIAC: Cardiomegaly. Coronary artery calcifications. Cardiac valve prosthesis noted. AORTA/VASCULAR: Dilated ascending thoracic aorta measuring up to 4.1 cm. Thoracic aortic atherosclero sis. LYMPH NODES/MEDIASTINUM: No thoracic adenopathy. CENTRAL AIRWAYS: Central airways are patent. LUNGS: Diffuse bilateral bronchial wall thickening with scattered mucous plugging. Multifocal mixed c onsolidative and tree-in-bud opacities, most pronounced in the bilateral lower lobes. PLEURA: Small left pleural effusion. ESOPHAGUS: Collapsed and not well assessed by CT, without obvious abnormality. THYROID: Negative, where seen. CHEST WALL: Left-sided cardiac conduction device noted. Median sternotomy changes. UPPER ABDOMEN: No acute findings. THORACIC SKELETAL: No acute finding. Multiple chronic appearing left-sided rib fracture deformitie s. ADDITIONAL CHEST FINDINGS: Diffuse bilateral soft tissue anasarca. IMPRESSION: 1. Exam severely limited due to motion and beam hardening artifact. 2. No definite evidence of acute pulmonary embolus within the limitations of the exam. 3. Multifocal mixed consolidative and tree-in-bud opacities, most pronounced in the bilateral lower lobes, concerning for atypical infectious/ inflammatory process. 4. Diffuse bronchial wall thickening with mucous plugging suggesting bronchitis. 5. Small left pleural effusion. 6. Cardiomegaly. 7. Dilated ascending thoracic aorta measuring up to 4.1 cm. 8. Diffuse bilateral soft tissue anasarca. Electronically signed by: Cruz Chao MD 08/31/2023 05:54 AM CDT Due to temporary technical issues with the PACS/Fluency reporting system, reports are being signed by the in house radiologist without review as a courtesy to ensure prompt reporting. The interpreting r adiologist is fully responsible for the content of the report.
--- NOTE | 2023-08-31 11:06 | RAD REPORT ---
EXAM DESCRIPTION: XR CHEST 1 VIEW CLINICAL HISTORY: SOB COMPARISON: None. TECHNIQUE: XR CHEST 1 VIEW 08/31/2023 1:39 AM CDT FINDINGS: The heart is moderately enlarged. Left biventricular pacemaker is present. Sternotomy was performed. There are diffuse interstitial changes within both lungs. There may be small pleural effus ions. There is no pneumothorax. There are multiple old left rib fractures as well as left clavicle fr acture. IMPRESSION: Diffuse interstitial changes which could represent pulmonary edema. Electronically signed by: Rashad Andrade MD 08/31/2023 03:15 AM CDT Due to temporary technical issues with the PACS/Fluency reporting system, reports are being signed by the in house radiologist without review as a courtesy to ensure prompt reporting. The interpreting r adiologist is fully responsible for the content of the report.
--- NOTE | 2023-08-31 12:30 | ECHO ---
HEIGHT: 5 ft 11 in WEIGHT: 133 lb 0 oz DATE OF STUDY: 09/03/[address]: Susu Lerner 2-DIMENSIONAL: YES M.MODE: YES DOPPLER: YES COLOR FLOW: YES TDS: YES PORTABLE: YES DEFINITY: BUBBLE STUDY: DIAGNOSIS: CONGESTIVE HEART FAILURE/ VALVE REPLACEMENT CARDIAC HISTORY: CATHERIZATION: SURGERY: PROSTHETIC VALVE: PACEMAKER: YES MEASUREMENTS (cm) DIASTOLIC (NORMALS) SYSTOLIC (NORMALS) IVSd 0.8 (0.6-1.2) LA Diam 4.2 (1.9-4.0) LVEF 49% LVIDd 4.6 (3.5-5.7) LVIDs 3.5 (2.0-3.5) %FS 25% LVPWd 1.0 (0.6-1.2) Ao Diam 3.6 (2.0-3.7) 2 DIMENSIONAL ASSESSMENT: RIGHT ATRIUM: NORMAL LEFT ATRIUM: NORMAL RIGHT VENTRICLE: NORMAL LEFT VENTRICLE: NORMAL TRICUSPID VALVE: MILD TRICUSPID REGURGITATION MITRAL VALVE: MITRAL RING CAN BE SEEN PULMONIC VALVE: NORMAL AORTIC VALVE: MILD AORTIC REGURGITATION PERICARDIAL EFFUSION: NONE AORTIC ROOT: MILD DILATED LEFT VENTRICULAR WALL MOTION: GLOBAL HYPOKINESIS DOPPLER/COLOR FLOW: DIASTOLIC DYSFUNCTION COMMENTS: 1. SEVERE REDUCED LEFT VENTRICULAR SYSTOLIC FUNCTION, EJECTION FRACTION 30-35%, SEVERE GLOBAL HYPOKINESIS, SEPTAL DYSKINESIS DUE TO PACING. 2. DIASTOLIC DYSFUNCTION 3. 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 PACEMAKER LEAD SEEN IN RIGHT ATRIUM, RIGHT VENTRICLE 5. DILATED INFERIOR VENA CAVA (RIGHT ATRIAL PRESSURE GREATER THAN 20 mmHg) 6. MODERATE PULMONARY HYPERTENSION (RIGHT VENTRICULAR SYSTOLIC PRESSURE 40-45 mHg) TECHNOLOGIST: PEDRO PABLO LAMAR [facility]
--- NOTE | 2023-08-31 16:34 | P.CNS ---
Date of Consult: 08/31/23 Chief Complaint: CHF exacerbation, hypoxia History of Present Illness: Patient with PMH of heart failure, valve replacement surgery, presented with worsening SOB, patient also got a pacemaker, report SOB and swelling for the last few days, denies chest pain, no palpitations, no syncope. Allergies No Known Allergies Allergy (Unverified 08/31/23 06:13) Home Medications: Apixaban [Eliquis] 5 mg PO BID 09/01/23 Aspirin [Aspirin EC] 81 mg PO DAILY 09/01/23 Atorvastatin Calcium [Lipitor] 40 mg PO DAILY 09/01/23 Carvedilol [Coreg] 12.5 mg PO BID 09/01/23 Spironolactone [Aldactone*] 25 mg PO DAILY 09/01/23 - Past Medical/Surgical History Diabetic: No -: htn -: hld -: valve replacement -: CHF -: COPD -: Throat Cancer - Radiation -: valve replacement Psychosocial/ Personal History: Lives in a motor home with his significant other. Lives in [place]. Daughter (Toya Lopez) in [facility]. Pt is [place] - Social History Alcohol use: No CD- Drugs: No Caffeine use: Yes Place of Residence: Home Review of Systems 10-point ROS is otherwise unremarkable Physical Examination Temp Pulse Resp BP Pulse Ox 70 23 H 117/89 100 08/31/23 12:00 08/31/23 12:00 08/31/23 12:00 08/31/23 12:00 General: Alert, Oriented x3 HEENT: Atraumatic Neck: Supple Respiratory: Crackles/rales Cardiovascular: Normal S1 S2, Edema Gastrointestinal: Normal bowel sounds Laboratory Data (last 24 hrs) 08/31/23 08/31/23 08/31/23 01:48 01:48 01:48 WBC 9.90 Hgb 10.6 L Hct 33.1 L Plt Count 148 L PT 16.4 H INR 1.51 Sodium 135 L Potassium 3.6 BUN 17 Creatinine 0.99 Glucose 159 H Magnesium 2.0 Total Bilirubin 0.5 AST 41 H ALT 22 Alkaline Phosphatase 88 - Problems (1) Acute on chronic combined systolic and diastolic heart failure Current Visit: Yes Status: Acute Plan: please start patient on Lasix 20 mg po BID Conitnue Coreg 12.5 mg po BID Continue Aldactone 25 mg daily Continue Lisinopril 2.5 mg daily follow up with cardiology in clinic
[2023-08-31] MEDS: ATORVASTATIN 40 MG TAB PO SCH (21:23)
[2023-08-31] MEDS: carvediloL 12.5 MG TAB PO SCH (21:23)
[2023-08-31] MEDS: METHYLPREDNISOLONE 40 MG INJ IV SCH (21:24)
[2023-09-01 03:37] LABS: Absolute Lymphocytes (CBC) 0.9 K/uL (0.7-4.9); Absolute Monocytes 0.1 K/uL (0.1-1.3); Absolute Neutrophil 6.7 K/uL (1.8-8.0); Basophils % 0.1 % (0-1.3); Eosinophils % 0.1 % (0-4.4); Hematocrit 31.6 % (39.6-49.0); Hemoglobin 10.5 g/dL (13.6-17.9); Lymphocytes % 11.2 % (15.3-44.8); MCH 26.6 pg (27.0-35.0); MCHC 33.3 g/dL (32.0-36.0); MPV 8.6 fL (7.6-11.3); Monocytes % 1.7 % (3.3-12.3); Neutrophils % 86.9 % (41.7-73.7); Nucleated Red Blood Cells % 0.1 % (0-0); Platelets 139 thou/uL (152-406); RBC Red Blood Cell Count 3.94 M/uL (4.33-5.43); Red Cell Distribution Width 18.2 % (12.1-15.2)
[2023-09-01 04:02] LABS: Albumin 2.3 g/dL (3.4-5.0); Albumin/Globulin Ratio 0.5 (1.1-1.8); Anion Gap 6.3 mEq/L (5.0-15.0); Bilirubin Total 0.4 mg/dL (0.2-1.0); Globulin 4.3 g/dL (2.3-3.5); Phosphorus 2.2 mg/dL (2.5-4.9); Potassium 3.3 mEq/L (3.5-5.1); Protein, Total 6.6 g/dL (6.4-8.2)
[2023-09-01] MEDS: POTASSIUM PHOS IN 0.9 % NACL 15 MMOL/250 ML BAG IV ONE (05:59)
[2023-09-01] MEDS: LEVOTHYROXINE SOD 0.075 MG TAB PO SCH (05:59)
[2023-09-01] MEDS: POTASSIUM CL SA 10 MEQ TAB PO ONE ×2 (07:18→21:11)
[2023-09-01] MEDS: lisinopriL 5 MG TAB PO SCH (09:12)
--- NOTE | 2023-09-01 14:06 | P.PN ---
Subjective Date of Service: 09/02/23 Chief Complaint: CHF exacerbation, hypoxia Subjective: Improving (less short of breath, no O2 currently, upper lobes remain congested) <Susu Lernerlen - Last Filed: 09/02/23 08:27> Date of Service: 09/02/23 <Gabo Welch Jeremiah - Last Filed: 09/02/23 21:56> Review of Systems 10-point ROS is otherwise unremarkable General: As per HPI Respiratory: As per HPI <Susu Lerner Kieran - Last Filed: 09/02/23 08:27> Physical Examination - Vital Signs Temperature: 97.4 F Blood Pressure: 127/72 Pulse: 71 Respirations: 16 Pulse Ox (%): 93 - Physical Exam General: Alert, In no apparent distress, Oriented x3 HEENT: Atraumatic, Normocephalic Neck: Supple Respiratory: Normal air movement, Rhonchi/gurgles (upper lobes) Capillary refill: <2 Seconds Gastrointestinal: Soft and benign Musculoskeletal: No clubbing Integumentary: No rashes Neurological: Normal speech, Normal tone Lymphatics: No axilla or inguinal lymphadenopathy External genitalia: Deferred Rectal: Deferred <Susu Lernerlen - Last Filed: 09/02/23 08:27> Assessment And Plan - Plan CHF (new onset?) with hypoxemia Daily wt Strict I&O ECHO Lasix 40mg IV given in ED with resultant drop in BP to SBP 88. Diuresing well (1950ml output in ED since 314). Will re-evaluate need post ECHO Consult Cardiology - Dr. Croft following Valve replacement Continue Eliquis 5mg po BID ECHO -"1. SEVERE REDUCED LEFT VENTRICULAR SYSTOLIC FUNCTION, EJECTION FRACTION 30-35%, SEVERE GLOBAL HYPOKINESIS, SEPTAL DYSKINESIS DUE TO PACING. 2. DIASTOLIC DYSFUNCTION 3. 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 PACEMAKER LEAD SEEN IN RIGHT ATRIUM, RIGHT VENTRICLE 5. DILATED INFERIOR VENA CAVA (RIGHT ATRIAL PRESSURE GREATER THAN 20 mmHg) 6. MODERATE PULMONARY HYPERTENSION (RIGHT VENTRICULAR SYSTOLIC PRESSURE 40- 45mHg) COPD (hx?) Nebs q 4h HTN Atorvastatin 40mg po qhs HLD Carvedilol 12.5mg po BID Lisinopril 2.5mg po daily Hypothyroidism Levothyroxine 75mcg po daily Check TSH DVT/GI prophylaxis Pt on Eliquis/Protonix <Susu Lerner - Last Filed: 09/02/23 08:27> - Plan Pt seen and examined. I agree with the note by the ADHESION TESTER. Continue lasix, strict I/O and daily weight. <Gabo Welch - Last Filed: 09/02/23 21:56>
--- NOTE | 2023-09-01 16:45 | P.PN ---
Subjective Date of Service: 09/01/23 Chief Complaint: CHF exacerbation, hypoxia Subjective: No new changes Review of Systems 10-point ROS is otherwise unremarkable Physical Examination - Vital Signs Temperature: 97.4 F Blood Pressure: 127/72 Pulse: 71 Respirations: 16 Pulse Ox (%): 93 - Physical Exam General: Alert, Oriented x3 HEENT: Atraumatic Neck: Supple Respiratory: Clear to auscultation bilaterally Cardiovascular: No edema, Normal S1 S2 Gastrointestinal: Normal bowel sounds Assessment And Plan - Current Problems (Diagnosis) (1) Acute on chronic combined systolic and diastolic heart failure Current Visit: Yes Status: Acute Plan: please start patient on Lasix 20 mg po BID Conitnue Coreg 12.5 mg po BID Continue Aldactone 25 mg daily Continue Lisinopril 2.5 mg daily follow up with cardiology in clinic (2) Status post mitral valve annuloplasty Current Visit: Yes Status: Acute Plan: Continue Eliquis 5 mg po BID Patient ok to discharge from cardiology.
[2023-09-01 22:59] VITALS: O2SAT 91
[2023-09-02 03:08] LABS: Absolute Lymphocytes (CBC) 1.1 K/uL (0.7-4.9); Absolute Monocytes 0.3 K/uL (0.1-1.3); Absolute Neutrophil 8.4 K/uL (1.8-8.0); Basophils % 0.1 % (0-1.3); Hematocrit 30.7 % (39.6-49.0); Hemoglobin 9.9 g/dL (13.6-17.9); Lymphocytes % 10.8 % (15.3-44.8); MCH 25.8 pg (27.0-35.0); MCHC 32.3 g/dL (32.0-36.0); MPV 8.6 fL (7.6-11.3); Monocytes % 2.6 % (3.3-12.3); Neutrophils % 86.5 % (41.7-73.7); Platelets 153 thou/uL (152-406); RBC Red Blood Cell Count 3.84 M/uL (4.33-5.43); Red Cell Distribution Width 18.7 % (12.1-15.2)
[2023-09-02 03:18] LABS: Albumin 2.3 g/dL (3.4-5.0); Albumin/Globulin Ratio 0.5 (1.1-1.8); Anion Gap 1.7 mEq/L (5.0-15.0); Bilirubin Total 0.4 mg/dL (0.2-1.0); Globulin 4.2 g/dL (2.3-3.5); Magnesium 2.1 mg/dL (1.6-2.4); Phosphorus 2.5 mg/dL (2.5-4.9); Potassium 3.7 mEq/L (3.5-5.1); Protein, Total 6.5 g/dL (6.4-8.2)
--- NOTE | 2023-09-02 05:45 | P.DS ---
Admission Date: 08/31/23 Discharge Date: 09/02/23 Reason for Admission: CHF exacerbation, hypoxia Consultations: Dr. Croft Brief History of Present Illness: Mr. Christian is an 87-year-old gentleman with a past medical history of throat cancer, hypertension, hyperlipidemia, CHF, valve replacement, COPD who lives in a motor home with his significant other. They traveled here from [place], [place]. He has become increasingly short of breath over the last several days. He presented to the ER around 1 AM with acute dyspnea. Respiratory rate of 40, pulse ox on room air 86% on arrival has improved to respiratory rate of 27, SpO2 94% on 2L after some breathing treatments and 40 mg of Lasix IV. Laboratory evaluation showed a white count of 9.9 with no shift H/H of 10.6/33.1, platelets 148. Chem-7 unremarkable, lactate initially 2.7 (Repeat 1.6), magnesium 2.0, troponin 10.9, BNP 2676, albumin 2.5, flu and COVID studies are negative, chest x-ray read as increased interstitial markings, CT for PE pending. Hospital Course: Mr Christian did well over the course of his hospitalization. He was diuresed with Lasix and his respiratory status improved dramatically. He was seen by Dr. Croft, Cardiology, after 2D echo was performed. Echocardiogram results to follow. Recommendations for Lasix 20 mg p.o. twice daily with continuation of Coreg 12.5 mg p.o. twice daily, Aldactone 25 mg p.o. daily, lisinopril 2.5 mg p.o. daily, and Eliquis 5 mg p.o. twice daily were relayed to the patient. As he lives out of town, he should follow-up with cardiology upon return home. 2D Echo results 1. SEVERE REDUCED LEFT VENTRICULAR SYSTOLIC FUNCTION, EJECTION FRACTION 30-35%, SEVERE GLOBAL HYPOKINESIS, SEPTAL DYSKINESIS DUE TO PACING. 2. DIASTOLIC DYSFUNCTION 3. 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 PACEMAKER LEAD SEEN IN RIGHT ATRIUM, RIGHT VENTRICLE 5. DILATED INFERIOR VENA CAVA (RIGHT ATRIAL PRESSURE GREATER THAN 20 mmHg) 6. MODERATE PULMONARY HYPERTENSION (RIGHT VENTRICULAR SYSTOLIC PRESSURE 40-45mHg) <Susu Lerner - Last Filed: 09/02/23 08:23> Admission Date: 08/31/23 Discharge Date: 09/02/23 Hospital Course: Pt seen and examined. I agree with the note by the COMPRESSED GAS PLANT WORKER. Ok to discharge pt. Will continue lasix 20mg po BID, eliquis 5mg po BID, Aldactone, coreg and lisinopril. Echo shows EF 30 - 35%. Ok to discharge pt. <Gabo Welch - Last Filed: 09/02/23 12:00> Disposition: ROUTINE DISCHARGE Discharge Condition: GOOD Vital Signs/Physical Exam: Temp Pulse Resp BP Pulse Ox 98.7 F 70 20 114/70 91 09/02/23 00:00 09/02/23 00:00 09/02/23 00:00 09/02/23 00:00 09/02/23 00:00 General: Alert, In no apparent distress, Oriented x3 HEENT: Atraumatic, Normocephalic Neck: JVD not distended Respiratory: Normal air movement, Rhonchi/gurgles, Other (On Neb tx) Cardiovascular: No edema, Regular rate/rhythm, Systolic murmur Capillary refill: <2 Seconds Gastrointestinal: Soft and benign Musculoskeletal: No clubbing, No swelling Integumentary: No rashes Neurological: Normal speech, Normal tone Lymphatics: No axilla or inguinal lymphadenopathy External genitalia: Deferred Rectal: Deferred Laboratory Data at Discharge: WBC 9.70 thou/uL (4.3-10.9) 09/02/23 02:14 Hgb 9.9 g/dL (13.6-17.9) L 09/02/23 02:14 Hct 30.7 % (39.6-49.0) L 09/02/23 02:14 Plt Count 153 thou/uL (152-406) 09/02/23 02:14 PT 16.4 SECONDS (9.5-12.5) H 08/31/23 01:48 INR 1.51 08/31/23 01:48 Sodium 133 mEq/L (136-145) L 09/02/23 02:14 Potassium 3.7 mEq/L (3.5-5.1) 09/02/23 02:14 BUN 16 mg/dL (7-18) 09/02/23 02:14 Creatinine 0.90 mg/dL (0.70-1.30) 09/02/23 02:14 Glucose 161 mg/dL (74-106) H 09/02/23 02:14 Phosphorus 2.5 mg/dL (2.5-4.9) 09/02/23 02:14 Magnesium 2.1 mg/dL (1.6-2.4) 09/02/23 02:14 Total Bilirubin 0.4 mg/dL (0.2-1.0) 09/02/23 02:14 AST 33 U/L (15-37) 09/02/23 02:14 ALT 23 U/L (16-61) 09/02/23 02:14 Alkaline Phosphatase 78 U/L (45-117) 09/02/23 02:14 Triglycerides 64 mg/dL (<150) 09/01/23 02:24 Cholesterol 80 mg/dL (<200) 09/01/23 02:24 HDL Cholesterol 29 mg/dL (40-60) L 09/01/23 02:24 Cholesterol/HDL Ratio 2.76 09/01/23 02:24 <Lerner,Susu Kieran - Last Filed: 09/02/23 08:23> Vital Signs/Physical Exam: Temp Pulse Resp BP Pulse Ox 97.4 F 71 16 127/72 93 09/02/23 08:27 09/02/23 08:27 09/02/23 08:27 09/02/23 08:27 09/02/23 08:27 Laboratory Data at Discharge: WBC 9.70 thou/uL (4.3-10.9) 09/02/23 02:14 Hgb 9.9 g/dL (13.6-17.9) L 09/02/23 02:14 Hct 30.7 % (39.6-49.0) L 09/02/23 02:14 Plt Count 153 thou/uL (152-406) 09/02/23 02:14 PT 16.4 SECONDS (9.5-12.5) H 08/31/23 01:48 INR 1.51 08/31/23 01:48 Sodium 133 mEq/L (136-145) L 09/02/23 02:14 Potassium 3.7 mEq/L (3.5-5.1) 09/02/23 02:14 BUN 16 mg/dL (7-18) 09/02/23 02:14 Creatinine 0.90 mg/dL (0.70-1.30) 09/02/23 02:14 Glucose 161 mg/dL (74-106) H 09/02/23 02:14 Phosphorus 2.5 mg/dL (2.5-4.9) 09/02/23 02:14 Magnesium 2.1 mg/dL (1.6-2.4) 09/02/23 02:14 Total Bilirubin 0.4 mg/dL (0.2-1.0) 09/02/23 02:14 AST 33 U/L (15-37) 09/02/23 02:14 ALT 23 U/L (16-61) 09/02/23 02:14 Alkaline Phosphatase 78 U/L (45-117) 09/02/23 02:14 Triglycerides 64 mg/dL (<150) 09/01/23 02:24 Cholesterol 80 mg/dL (<200) 09/01/23 02:24 HDL Cholesterol 29 mg/dL (40-60) L 09/01/23 02:24 Cholesterol/HDL Ratio 2.76 09/01/23 02:24 <Gabo Welch - Last Filed: 09/02/23 12:00> Diet: AHA Activity: Ad arturo <Susu Lerner - Last Filed: 09/02/23 08:23> <Gabo Welch - Last Filed: 09/02/23 12:00> Home Medications: Apixaban [Eliquis] 5 mg PO BID 09/01/23 Atorvastatin Calcium [Lipitor] 40 mg PO DAILY 09/01/23 Carvedilol [Coreg] 12.5 mg PO BID 09/01/23 Spironolactone [Aldactone*] 25 mg PO DAILY 09/01/23 Albuterol Inhaler [Ventolin Inhaler*] 2 puff IH Q6H PRN #2 inh 09/02/23 Furosemide [Lasix] 20 mg PO BIDL #60 tab 09/02/23 Levothyroxine [Synthroid*] 0.075 mg PO DAILYAC tab 09/02/23 lisinopriL [Prinivil*] 2.5 mg PO DAILY #30 tab 09/02/23 New Medications: Furosemide [Lasix] 20 mg PO BIDL #60 tab lisinopriL [Prinivil*] 2.5 mg PO DAILY #30 tab Albuterol Inhaler [Ventolin Inhaler*] 2 puff IH Q6H PRN #2 inh PRN Reason: Shortness Of Breath Physician Discharge Instructions: Okay to DC IV and DC home Follow-up with primary care provider in 1 to 2 weeks Follow-up with cardiology in 1 to 2-week Please call the inpatient unit for any questions or concerns regarding hospital stay Return to the ER for worsening symptoms Mr Christian did well over the course of his hospitalization. He was diuresed with Lasix and his respiratory status improved dramatically. He was seen by Dr. Croft, Cardiology, after 2D echo was performed. Echocardiogram results to follow. Recommendations for Lasix 20 mg p.o. twice daily with continuation of Coreg 12.5 mg p.o. twice daily, Aldactone 25 mg p.o. daily, lisinopril 2.5 mg p.o. daily, and Eliquis 5 mg p.o. twice daily were relayed to the patient. As he lives out of town, he should follow-up with cardiology upon return home. 2D Echo results 1. SEVERE REDUCED LEFT VENTRICULAR SYSTOLIC FUNCTION, EJECTION FRACTION 30-35%, SEVERE GLOBAL HYPOKINESIS, SEPTAL DYSKINESIS DUE TO PACING. 2. DIASTOLIC DYSFUNCTION 3. 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 PACEMAKER LEAD SEEN IN RIGHT ATRIUM, RIGHT VENTRICLE 5. DILATED INFERIOR VENA CAVA (RIGHT ATRIAL PRESSURE GREATER THAN 20 mmHg) 6. MODERATE PULMONARY HYPERTENSION (RIGHT VENTRICULAR SYSTOLIC PRESSURE 40-45mHg) Followup: DEMETRIA AUGUSTIN [Primary Care Provider] -
[2023-09-02] MEDS: POTASSIUM CL SA 10 MEQ TAB PO ONE (07:53)
[2023-09-02 08:56] VITALS: BP 127/72; TEMP 97.4
--- NOTE | 2023-09-04 13:12 | EKG ---
Test Date: 2023-08-31 Test Time: 02:26:42 Cup Machine Operator: RV MEASUREMENT RESULTS: Intervals: Rate: 70 [place]: QRSD: 208 QT: 502 QTc: 542 [place]: P: [place]: QRS: 132 T: 88 INTERPRETIVE STATEMENTS: Ventricular-paced rhythm Biventricular pacemaker detected Abnormal ECG Compared to ECG 03/10/2023 14:55:54 No significant changes Electronically Signed On 09-04-23 13:00:27 CDT by Akira Sommer
== END 2023-09-02 10:50 | disposition home or self-care (01) | DRG 291 ==
LOC: ER 01:20 → ERHOLD 06:16 → 2ND 16:09
PROVIDERS: ADMIT Hospitalist; ATTEND Hospitalist
DX: I11.0 Hypertensive heart disease with heart failure (principal); I50.43 Acute on chronic combined systolic (congestive) and diastolic (congestive) heart failure; J96.01 Acute respiratory failure with hypoxia; J40 Bronchitis, not specified as acute or chronic; E03.9 Hypothyroidism, unspecified; E78.5 Hyperlipidemia, unspecified; I27.29 Other secondary pulmonary hypertension; I34.0 Nonrheumatic mitral (valve) insufficiency; E78.00 Pure hypercholesterolemia, unspecified; J44.9 Chronic obstructive pulmonary disease, unspecified; Z95.0 Presence of cardiac pacemaker; Z95.2 Presence of prosthetic heart valve; Z79.82 Long term (current) use of aspirin; Z79.01 Long term (current) use of anticoagulants; Z79.02 Long term (current) use of antithrombotics/antiplatelets; Z79.890 Hormone replacement therapy; Z79.899 Other long term (current) drug therapy
CPT/HCPCS: 36415; 71045; 71275; 80048; 80053; 80061; 80076; 81001; 82947; 83605; 83735; 83880; 84100; 84132; 84443; 84484; 85025; 85610; 87040; 87804; 87811; 93005; 93306; C9113; J1940; J2920; J7030; J7613; J7644; Q9967